=== PATIENT | female | born 1950 | race Caucasian/White ===

== ENCOUNTER 2022-09-05 13:21 | Outpatient (CLI) | payer MEDICARE, MEDICAID, SELFPAY ==
--- NOTE | 2022-09-05 13:35 | MM_ITS ---
WS: [id number] BILATERAL 3D TOMOSYNTHESIS DIGITAL SCREENING MAMMOGRAPHY WITH CAD CLINICAL INFORMATION: LT BREAST PAIN HISTORY: LEFT breast pain COMPARISON: None. TECHNIQUE: Bilateral CC and MLO views. FINDINGS: Scattered fibroglandular densities bilaterally. A few incidental punctate calcifications. No mammogra phic abnormalities of concern LEFT axilla. Ultrasound is pending. Unremarkable RIGHT breast. ULTRASOUND BREAST LEFT TECHNIQUE: Ultrasound left breast focused area of concern. CLINICAL INFORMATION: LT BREAST PAIN COMPARISON: LEFT FINDINGS: Ultrasound LEFT breast in the area of concern 2:00 and 3:00 position and LEFT axilla. Normal underlyi ng parenchymal tissue. No cystic or solid lesions. No suspicious lesions to target for biopsy. Normal LEFT axilla. No LEFT axillary lymphadenopathy. MM/[place] [id number] IMPRESSION: BI-RADS: 2-Benign FOLLOW UP: 1 Year Follow-up Recommend return to annual screening mammography.
== END 2022-09-05 13:22 | disposition home or self-care (01) ==
PROVIDERS: PCP Nurse Practitioner Family; Visit Provider Nurse Practitioner Family
DX: N64.4 Mastodynia (principal)
CPT/HCPCS: 76642; 77062; G0279

== ENCOUNTER 2022-12-06 10:11 | Outpatient (CLI) | payer MEDICARE, MEDICAID, SELFPAY ==
--- NOTE | 2022-12-06 10:20 | USCV_ITS ---
Corazon Hudson Age: 72 Gender: F : 1950 Exam Date: 12/06/2022 10:30 Ordering Phys: Shelia Giraldo Technologist: TAYLER Exam Location: [facility] [place] Indication: SOB. VERY RECENT ABD SURGERY BP: 130 / 70 HR: 68 Rhythm: Sinus Technical Quality: Adequate MEASUREMENTS (Male / Female) Normal Values 2D ECHO LV Diastolic Diameter PLAX 5.4 cm 4.2 - 5.9 / 3.9 - 5.3 cm LV Systolic Diameter PLAX 2.7 cm LV Chamber Size 3.8 cm IVS Diastolic Thickness 1.1 cm 0.6 - 1.0 / 0.6 - 0.9 cm IVS Systolic Thickness 1.6 cm LVPW Diastolic Thickness 1.1 cm 0.6 - 1.0 / 0.6 - 0.9 cm LVPW Systolic Thickness 1.6 cm RV Chamber Size 3.0 cm LVOT Diameter 2.0 cm LV Ejection Fraction 2D Teich 80.2 % LV Ejection Fraction MOD 2C 71.8 % LV Ejection Fraction 2C AL 72.5 % LA Diameter 4.7 cm LA Width 4.6 cm LA Height 4.5 cm RA Width 2.8 cm RA Height 3.5 cm Aorta at Sinotubular Diameter 3.3 cm IVC Diameter 1.2 cm M-MODE Aortic Annulus Diameter 3.3 cm LA Ao Ratio MM 1.7 MV E Point Septal Separation 0.4 cm DOPPLER AV Peak Velocity 156.0 cm/s LVOT Peak Velocity 95.0 cm/s AV Area Cont Eq vti 2.3 cm squared AV Area Cont Eq pk 1.9 cm squared MV Area PHT 2.4 cm squared Mitral E to A Ratio 1.0 MV E' Velocity 63.0 cm/s Mitral E to MV E' Ratio 13.7 Mitral E to LV E' Lateral Ratio 10.7 Mitral E to LV E' Septal Ratio 19.2 TR Peak Velocity 256.9 cm/s TR Peak Gradient 26.4 mmHg TR Mean Velocity 195.2 cm/s TR Mean Gradient 16.8 mmHg TR Velocity Time Integral 85.0 cm TV Peak E Velocity 75.0 cm/s Right Atrial Pressure 5.0 mmHg Pulmonary Artery Systolic Pressu 31.4 mmHg RV Acceleration Time 0.1 s RV Ejection Time 0.4 s RV AcT/ET 0.3 FINDINGS Left Ventricle Normal left ventricular cavity size. Mild left ventricular hypertrophy. Normal left ventricular systolic function. Left ventricular ejection fraction is estimated at 60 %. Grade I/IV diastolic dysfunction (abnormal relaxation filling pattern), normal to mildly elevated filling pressures. Right Ventricle Normal right ventricular size and systolic function. Normal right ventricular systolic pressure. Right Atrium The right atrium is normal in size. Left Atrium Severely increased left atrial size. Mitral Valve Structurally normal mitral valve. Moderate-severe mitral valve regurgitation. Aortic Valve Structurally normal aortic valve without significant sclerosis or stenosis. There is no aortic regurgitation. Tricuspid Valve Structurally normal tricuspid valve. Mild tricuspid valve regurgitation. Pulmonic Valve Pulmonic valve not well visualized. Mild pulmonary valve regurgitation. Pericardium Normal pericardium without effusion. Aorta Normal ascending aorta dimension. IVC The inferior vena cava appears normal. CONCLUSIONS Normal left ventricular cavity size. Mild left ventricular hypertrophy. Normal left ventricular systolic function. Left ventricular ejection fraction is estimated at 60 %. Grade I/IV diastolic dysfunction (abnormal relaxation filling pattern), normal to mildly elevated filling pressures. Severely increased left atrial size. Structurally normal mitral valve. Moderate-severe mitral valve regurgitation. Previous study was done 07/02/2017. Mitral regurgitation has worsened from mild to now moderate to severe. The left atrium is now enlarged. Otherwise, no change Dr. German Cook MD (Electronically Signed) Final Date: 06 December 2022 14:41 S
== END 2022-12-06 10:12 | disposition home or self-care (01) ==
LOC: RAD 10:12
PROVIDERS: PCP Nurse Practitioner Family; Visit Provider Nurse Practitioner Family
DX: R06.02 Shortness of breath (principal); I51.7 Cardiomegaly; I34.0 Nonrheumatic mitral (valve) insufficiency
CPT/HCPCS: 93306

== ENCOUNTER → 2023-01-28 12:25 | Outpatient (BNVA) | payer MEDICARE, MEDICAID, SELFPAY | PROVIDERS: PCP Nurse Practitioner Family; Visit Provider Internal Medicine Cardiovascular Disease | DX: R07.9 Chest pain, unspecified (principal); I34.0 Nonrheumatic mitral (valve) insufficiency; E78.5 Hyperlipidemia, unspecified; E03.9 Hypothyroidism, unspecified; Z87.19 Personal history of other diseases of the digestive system; R00.1 Bradycardia, unspecified | CPT/HCPCS: 93005; 99204 ==

== ENCOUNTER 2023-06-20 09:16 | Day surgery (SDC) | payer MEDICARE, MEDICAID, SELFPAY ==
--- NOTE | 2023-06-20 09:24 | USCV_ITS ---
Corazon Hudson Age: 72 Gender: F : 1950 Exam Date: 06/20/2023 10:32 Ordering Phys: Felicia Blanco Technologist: CHAYITO Exam Location: [facility]_ Indication: MVI BP: 180 / 81 HR: 78 Rhythm: Sinus Technical Quality: Adequate MEASUREMENTS (Male / Female) Normal Values 2D ECHO LVOT Diameter 2.0 cm DOPPLER AV Peak Velocity 199.0 cm/s LVOT Peak Velocity 146.0 cm/s AV Area Cont Eq vti 2.5 cm squared AV Area Cont Eq pk 2.2 cm squared MV Area PHT 5.1 cm squared Mitral E to A Ratio 0.9 MV E' Velocity 118.0 cm/s Medications The MAYE was performed in the surgical suite. IV sedation was administered by the anesthesia service. Please refer to anesthesia report for detail Complications None Proc. Components The patient was brought to the MAYE examination room in a fasting state after obtaining an informed consent. The MAYE probe was passed into the posterior pharynx , mid-esophagus and distal esophagus, MAYE was performed at multiple levels. Because of the previous history of study surgery to the sphincter, did not attempt to advance the probe into the stomach FINDINGS Left Ventricle Normal size and ejection fraction. No gross wall motion normalities. Right Ventricle Patient with normal size and ejection fraction Right Atrium Possibly of normal size Left Atrium Moderately dilated left atrium. There was no reversal of flow in the pulmonary vein LA Appendage Normal size and contractility. IA Septum Appeared to be bulging to the right side Mitral Valve Moderate prolapse of the P2 scallop. Mild to moderate mitral regurgitation Aortic Valve Tricuspid leaflets with no significant stenosis or regurgitation Tricuspid Valve No significant lesions were noted Pulmonic Valve Structurally normal pulmonic valve. Pericardium No pericardial effusion. Aorta Normal aortic annulus size. CONCLUSIONS Normal size and ejection fraction. No gross wall motion normalities. Moderately dilated left atrium Moderate prolapse of the P2 scallop of the mitral valve Mild to moderate mitral regurgitation. At least 2 regurgitant jets were noted . Interatrial septum was found to be bulging to the right side. Normal left atrial appendage size and contractility No intracardiac masses No similar previous studies are available for comparison. The mitral regurgitant fraction was calculated to be 68%. The reliability of this is questionable Dr Foreign Scherer MD FACC (Electronically Signed) Final Date: 27 June 2023 16:50 S
[2023-06-20 09:28] VITALS: BMI 30.8
--- NOTE | 2023-06-20 09:42 | P.ANESASSM_ITS ---
Pre-Anesthetic Assessment Height/Weight: Height 1.7 m Weight 89.358 kg Operation Date: 06/20/23 10:00 Proposed Procedures p MAYE 77999 I34.0(Not Applicable) - Foreign Scherer MD Familial anesthetic complications: None Was Beta Herman taken within 24 hours: N/A Was Clonidine taken within 24 hours: N/A Last intake: Intake Last Liquid Date 06/19/23 Last Liquid Time 20:00 Last Solid Date 06/19/23 Last Solid Time 20:00 Social No alcohol and No tobacco Exam alert, oriented x 3, clear to auscultation bilaterally and regular rate & rhythm Airway Mallampati: Class II Dentition: false Pulmonary Sleep Apnea CV/HEM Mod to severe Mitral Regurge None reported Hepatic None reported GI None reported Metabolic Thyroid Disease [facility] [place] None reported Neuropsych None reported Anesthetic Plan ASA status: 3 Anesthesia: MAC Risk of > 500 ml blood loss (7ml/kg in children): No Medications/Allergies Home Medications Medication Instructions Recorded Confirmed Last Taken Type cholecalciferol (vitamin D3) 1,250 1,250 mcg PO DAILY 01/28/23 06/20/23 06/19/23 History mcg (50,000 unit) capsule levothyroxine 50 mcg capsule 50 mcg PO DAILY 01/28/23 06/20/23 06/19/23 History meclizine 25 mg tablet 25 mg PO TID PRN Dizziness Or 01/28/23 06/20/23 06/19/23 History Vertigo meloxicam 15 mg tablet 15 mg PO DAILY 01/28/23 06/20/23 06/19/23 History oxybutynin chloride 5 mg tablet 5 mg PO TID PRN bladder 01/28/23 06/19/23 06/19/23 History zinc 50 mg capsule 50 mg PO DAILY 06/19/23 06/20/23 06/19/23 History Allergies Allergy/AdvReac Type Severity Reaction Status Date / Time No Known Allergies Allergy Verified 06/19/23 08:59 PFSH Anesthesia Medical History (Updated 01/31/23 @ 05:39 by Denise Colon MD) Dyslipidemia Chest pain Acquired hypothyroidism Mitral valve regurgitation Surgical History (Updated 01/28/23 @ 12:29 by Denise Colon MD) H/O: hysterectomy History of esophageal surgery Family History (Updated 01/28/23 @ 12:12 by Ebony Moctezuma) Mother Clotting disorder Diabetes Other Hyperlipidemia Denies family history of CAD (coronary artery disease) Dementia Psychiatric illness Chronic kidney disease (CKD) Suicide Anesthesia complication Bleeding disorder Family history of premature coronary artery disease Lung disease Cancer Hypertension Stroke Data Anesthesia Cardiac Studies: Echocardiogram 12/06/22
[2023-06-20] MEDS: sodium chloride 0.9% 1,000 ML 30 ML IV (09:55)
--- NOTE | 2023-06-20 10:07 | PM.HP ---
Providers/Chief Complaint Primary Care Provider: Shelia Girlado Chief Complaint: I34.0 History of Present Illness Corazon Hudson is a 72 year old female With a history of mitral valve prolapse and mitral regurgitation, recently was found to have significant worsening of the mitral regurgitation.In order to further evaluate the mitral valve and rehabilitation, a MAYE was recommended by Dr. Colon. This patient has a recent history of small bowel perforation complicated with abdominal Abscess,Requiring surgical intervention.She is currently has significant improvement.She also has a history of esophageal reflux disease and had some surgical intervention. This was more than 30 years ago. Details are not available. She denies any difficulty in swallowing. No hematemesis or melena. No nausea or vomiting. Review of Systems Narrative: CONSTITUTIONAL: No fever or chills. [] EYES: No blurring of vision or other visual disturbances lately. [] ENT: No hoarseness of voice, auditory disturbances or sore throat. [] CARDIOVASCULAR: As mentioned above. [] RESPIRATORY: No significant cough. [] GASTROINTESTINAL: Recent small bowel perforation GENITOURINARY: No dysuria or hematuria. [] INTEGUMENTARY: No skin rashes or history of skin cancer. [] NEURO: No transient ischemic attacks or amaurosis. [] PSYCHIATRIC: No history of psychosis or major depression. [] HEMATOLOGIC: No bleeding disorders or significant anemia. [] ENDOCRINE: No history of polyuria or polydipsia. [] MUSCULOSKELETAL: No recent joint pain or swelling. [] ALLERGY/IMMUNOLOGY: As mentioned above. [] Medications/Allergies Home Medications Medication Instructions Recorded Confirmed Last Taken Type cholecalciferol (vitamin D3) 1,250 1,250 mcg PO DAILY 01/28/23 06/20/23 06/19/23 History mcg (50,000 unit) capsule levothyroxine 50 mcg capsule 50 mcg PO DAILY 01/28/23 06/20/23 06/19/23 History meclizine 25 mg tablet 25 mg PO TID PRN Dizziness Or 01/28/23 06/20/23 06/19/23 History Vertigo meloxicam 15 mg tablet 15 mg PO DAILY 01/28/23 06/20/23 06/19/23 History oxybutynin chloride 5 mg tablet 5 mg PO TID PRN bladder 01/28/23 06/19/23 06/19/23 History zinc 50 mg capsule 50 mg PO DAILY 06/19/23 06/20/23 06/19/23 History Allergies Allergy/AdvReac Type Severity Reaction Status Date / Time No Known Allergies Allergy Verified 06/19/23 08:59 PFSH Acute PFSH: Medical History Dyslipidemia Chest pain Acquired hypothyroidism Mitral valve regurgitation Surgical History H/O: hysterectomy History of esophageal surgery Family History Mother Clotting disorder Diabetes Other Hyperlipidemia Denies family history of CAD (coronary artery disease) Dementia Psychiatric illness Chronic kidney disease (CKD) Suicide Anesthesia complication Bleeding disorder Family history of premature coronary artery disease Lung disease Cancer Hypertension Stroke Vitals/I&O/Wt Weight last 48 hrs Weight 197 lb Physical Exam Narrative: GENERAL: The patient is alert and oriented times three. Not in any acute distress. [] HEENT: No significant pallor, icterus or lymphadenopathy.Oral cavity: There are no mucous membrane lesions. NECK: Trachea appears to be central. No masses noted. No JVD or thyromegaly appreciated. RESPIRATORY: Chest is symmetrical. No intercostals muscle retraction or any accessory muscle activation. There is no chest wall tenderness. Breath sounds are heard bilaterally. No rales or rhonchi heard. No evidence of any consolidation. [] BREASTS: Deferred. [] HEART: The heart sounds are normal. No S3 or S4. Systolic murmur grade 3 or 6 in the mitral areaNo pericardial rub ABDOMEN: No vessel pulsations or distention. No tenderness. No organomegaly appreciated. Bowel sounds are normally heard. [] : Deferred. [] RECTAL: Deferred. [] LYMPHATIC: No lymphadenopathy noted in the neck. EXTREMITIES: No edema or cyanosis. No clubbing. MUSCULOSKELETAL: No acute joint deformities or swelling SKIN: There are no significant rashes or ecchymosis NEUROPSYCHIATRIC: The patient is alert and oriented x3. Appears to be in a good mood. No tremors or rigidity noted. [] Data Other data: Echocardiogram done 12/06/22 Normal left ventricular cavity size. Mild left ventricular hypertrophy. Normal left ventricular systolic function. Left ventricular ejection fraction is estimated at 60 %. Grade I/IV diastolic dysfunction (abnormal relaxation filling pattern), normal to mildly elevated filling pressures. Severely increased left atrial size. Structurally normal mitral valve. Moderate-severe mitral valve regurgitation. Previous study was done 07/02/2017. Mitral regurgitation has worsened from mild to now moderate to severe. The left atrium is now enlarged. Otherwise, no change A&P Assessment and plan (1) Mitral valve regurgitation: Qualifiers: Cardiac valve disease etiology: nonrheumatic Qualified Code(s): I34.0 - Nonrheumatic mitral (valve) insufficiency (2) Acquired hypothyroidism: (3) H/O small bowel obstruction: (4) Dyslipidemia: Plan Patient requires a MAYE to better evaluate the mitral valve and mitral regurgitation. The transthoracic echocardiogram was a suboptimal quality. The risk of aspiration, bleeding, soft tissue injury, perforation of the stomach/esophagus and other concomitant complications were explained to the patient in detail. The patient understood this well and consented to proceed.Especially with a history of surgery to the esophagus and recent small bowel perforation, she carries a high risk.This was discussed with the patient and her son in detail which she understood well and consented to proceed Attestations Medical Necessity Statement*: Possible discharge home today Coding Level of Care Code Acute Code for Chg Fwd Diagnoses Nonrheumatic mitral valve regurgitation I34.0 Cardiac valve disease etiology: nonrheumatic Acquired hypothyroidism E03.9 H/O small bowel obstruction Z87.19 Dyslipidemia E78.5
--- NOTE | 2023-06-20 10:16 | W.PM.OPSUD ---
Surgery/Procedure H&P Update DATE OF PROCEDURE: June 20, 2023 DATE H&P PERFORMED: 06/20/23 H&P UPDATE INFORMATION: I have reviewed H&P completed within last 30 days, I have examined patient prior to procedure and No changes to prior documentation PREOP DIAGNOSIS: MVP/MR PRIMARY INDICATION FOR PROCEDURE: Worsening mitral regurgitation.Dyspnea on exertion PLANNED PROCEDURE: Operation Date: 06/20/23 10:00 Proposed Procedures p MAYE 32019 I34.0(Not Applicable) - Foreign Scherer MD
[2023-06-20 10:57] VITALS: BP 106/54; PULSE 54; RESP 20; TEMP 36.3; O2SAT 94
[2023-06-20 11:02] VITALS: BP 124/62; PULSE 61; RESP 20; O2SAT 96
[2023-06-20 11:07] VITALS: BP 122/64; PULSE 56; RESP 18; O2SAT 95
[2023-06-20 11:15] VITALS: BP 137/76; PULSE 56; RESP 18; O2SAT 98
[2023-06-20 11:28] VITALS: PULSE 56; RESP 18; O2SAT 97
[2023-06-20 11:34] VITALS: BP 101/76
--- NOTE | 2023-06-20 11:40 | ANE.PACU2 ---
Inpatient post-anesthesia follow up: Airway intact: Yes Vital signs: Temperature 97.4 F Pulse Rate 56 Respiratory Rate 18 Blood Pressure 101/76 Pulse Oximetry 97 Oxygen Delivery Me thod Room Air Oxygen Flow Rate Fraction of Inspir ed Oxygen Hydration adequate: Yes Nausea and vomiting: No Pain level: 1 Mental status: Baseline
== END 2023-06-20 11:55 | disposition home or self-care (01) ==
PROVIDERS: PCP Nurse Practitioner Family; Visit Provider Internal Medicine Cardiovascular Disease
PROC: (CPT 93312; principal; 2023-06-20 10:00)
DX: I34.0 Nonrheumatic mitral (valve) insufficiency (principal); E78.5 Hyperlipidemia, unspecified; E03.9 Hypothyroidism, unspecified; Z87.19 Personal history of other diseases of the digestive system; G47.30 Sleep apnea, unspecified
CPT/HCPCS: 93312; 93320; 93325; J2704; J7030

== ENCOUNTER → 2023-08-19 09:57 | Outpatient (BNVA) | payer MEDICARE, MEDICAID, SELFPAY | PROVIDERS: PCP Nurse Practitioner Family; Visit Provider Internal Medicine Cardiovascular Disease | DX: I34.0 Nonrheumatic mitral (valve) insufficiency (principal); E78.5 Hyperlipidemia, unspecified; E03.9 Hypothyroidism, unspecified; G47.33 Obstructive sleep apnea (adult) (pediatric) | CPT/HCPCS: 99214 ==

== ENCOUNTER → 2023-11-25 13:55 | Outpatient (BNVA) | payer MEDICARE, MEDICAID, SELFPAY | PROVIDERS: PCP Nurse Practitioner Family; Visit Provider Podiatrist Foot & Ankle Surgery | DX: L60.3 Nail dystrophy (principal) | CPT/HCPCS: 99203 ==

== ENCOUNTER → 2023-12-23 14:26 | Outpatient (BNVA) | payer MEDICARE, MEDICAID, SELFPAY | PROVIDERS: PCP Nurse Practitioner Family; Visit Provider Podiatrist Foot & Ankle Surgery | DX: L60.3 Nail dystrophy (principal) | CPT/HCPCS: 99213 ==

== ENCOUNTER → 2024-10-11 11:53 | Outpatient (BNVA) | payer MEDICARE, MEDICAID, SELFPAY | PROVIDERS: PCP Nurse Practitioner Family; Visit Provider Internal Medicine Cardiovascular Disease | DX: R07.9 Chest pain, unspecified (principal) | CPT/HCPCS: 93005; 99214 ==

== ENCOUNTER 2024-10-19 06:47 | Outpatient (CLI) | payer MEDICARE, MEDICAID, SELFPAY ==
--- NOTE | 2024-10-19 07:15 | USCV_ITS ---
Corazon Hudson Age: 74 Gender: F : 1950 Exam Date: 10/19/2024 07:07 Ordering Phys: Foreign Scherer MD ([email or web address]) Technologist: ADALID Exam Location: [facility] [place] [place] Indication: MR BP: 132 / 67 HR: 54 Rhythm: Sinus Technical Quality: Adequate MEASUREMENTS (Male / Female) Normal Values 2D ECHO LV Diastolic Diameter PLAX 5.0 cm 4.2 - 5.9 / 3.9 - 5.3 cm IVS Diastolic Thickness 1.8 cm 0.6 - 1.0 / 0.6 - 0.9 cm IVS Systolic Thickness 2.0 cm LVPW Diastolic Thickness 1.3 cm 0.6 - 1.0 / 0.6 - 0.9 cm LVPW Systolic Thickness 2.1 cm LVOT Diameter 2.0 cm LV Ejection Fraction 2D Teich 56.9 % LV Ejection Fraction MOD 4C 55.9 % LV Ejection Fraction MOD 2C 64.6 % LV Ejection Fraction 2C AL 65.6 % LA Diameter 4.6 cm RA Systolic Volume 4C AL 43.1 ml RA Systolic Volume 4C MOD 41.5 ml LA Sys Volume AL 87.0 cm cubed LA Sys Volume Index AL 42.0 cm cubed/m squared Aorta at Sinotubular Diameter 2.3 cm IVC Diameter 2.0 cm M-MODE LA Ao Ratio MM 2.0 AV Cusp Separation MM 1.9 cm DOPPLER AV Peak Velocity 134.0 cm/s LVOT Peak Velocity 118.0 cm/s AV Area Cont Eq vti 2.5 cm squared AV Area Cont Eq pk 2.6 cm squared MV Peak Velocity 115.0 cm/s MV Area PHT 2.3 cm squared Mitral E to A Ratio 0.9 TR Peak Velocity 150.0 cm/s TR Peak Gradient 9.0 mmHg TV Peak E Velocity 72.0 cm/s PV Peak Velocity 87.0 cm/s FINDINGS Left Ventricle Left ventricle is normal in size. LV systolic function is normal with EF of 55-60%. No regional wall motion abnormalities are seen. Grade 1 diastolic dysfunction. Right Ventricle Normal in size and function Right Atrium Normal in size Left Atrium Dilated Mitral Valve Mild mitral annular calcification. Mild to moderate mitral regurgitation. Aortic Valve Aortic valve is thickened. No significant stenosis or regurgitation. Tricuspid Valve Insufficient TR jet to evaluate RVSP. Pulmonic Valve Not well visualized Pericardium Normal Aorta Normal in size IVC Appears to be normal CONCLUSIONS LV systolic function is normal with EF of 55-60%. Grade 1 diastolic dysfunction. Left atrial dilation. Mild to moderate mitral regurgitation. Hank Barry MD (Electronically Signed) Final Date: 03 November 2024 12:13 S
== END 2024-10-19 06:48 | disposition home or self-care (01) ==
PROVIDERS: PCP Nurse Practitioner Family; Visit Provider Internal Medicine Cardiovascular Disease
DX: R06.09 Other forms of dyspnea (principal); R93.1 Abnormal findings on diagnostic imaging of heart and coronary circulation; I51.7 Cardiomegaly; I34.81 Nonrheumatic mitral (valve) annulus calcification; I34.0 Nonrheumatic mitral (valve) insufficiency; I35.8 Other nonrheumatic aortic valve disorders
CPT/HCPCS: 93306

== ENCOUNTER → 2025-04-25 07:59 | Outpatient (BNVA) | payer MEDICARE, MEDICAID, SELFPAY | PROVIDERS: PCP Nurse Practitioner Family; Visit Provider Orthopaedic Surgery | DX: M25.561 Pain in right knee (principal); M17.11 Unilateral primary osteoarthritis, right knee; M25.562 Pain in left knee; G89.29 Other chronic pain | CPT/HCPCS: 20610; 73560; 73565; 99204; J7325 ==